=== PATIENT | female | born 1980 | race Caucasian/White ===

== ENCOUNTER 2016-06-21 06:36 | Emergency (ER) | payer MEDICAID ==
[2016-06-21] MEDS ORDERED: PENICILLIN V POTASSIUM 500 MG TABLET PO ONE (08:14)
[2016-06-21] MEDS ORDERED: IBUPROFEN 800 MG TABLET PO ONE (08:14)
--- NOTE | 2016-06-21 08:17 | ER Document Report ---
ED Oral Problem - General Chief Complaint: Toothache Stated Complaint: BODYACHE Notes: Patient is a 36-year-old female p presents with jaw swelling and toothache on the right upper jaw. States she saw her dentist to weeks ago for a filling. Patient states that she woke up yesterday with swelling of her right upper jaw and pain in the upper part of her jaw. Patient has been taking Motrin and tramadol at home. Tramadol is prescribed for chronic back pain medication described by Dr. Cruz at [facility]. No other past medical history past surgical history social history. She denies any foul odor, foul drainage from it, difficulty swallowing, drooling. She's been able to tolerate by mouth diet without any difficulty. She denies any fevers or chills. TRAVEL OUTSIDE OF THE [place] IN LAST 30 DAYS: No - Related Data Allergies/Adverse Reactions: No Known Allergies Allergy (Verified 03/04/13 11:41) Past Medical History - Social History Smoking Status: Former Smoker Chew tobacco use (# tins/day): No Frequency of alcohol use: None Drug Abuse: None Family History: Reviewed & Not Pertinent Patient has suicidal ideation: No Patient has homicidal ideation: No Renal/ Medical History: Denies: Hx Peritoneal Dialysis Psychiatric Medical History: Reports: Hx Attention Deficit Hyperactivity Disorder Review of Systems - Review of Systems Constitutional: No symptoms reported EENT: See HPI Cardiovascular: No symptoms reported Respiratory: No symptoms reported Gastrointestinal: No symptoms reported Genitourinary: No symptoms reported Female Genitourinary: No symptoms reported Musculoskeletal: No symptoms reported Skin: No symptoms reported Hematologic/Lymphatic: No symptoms reported Neurological/Psychological: No symptoms reported Physical Exam - Vital signs Vitals: Temp Pulse Resp BP Pulse Ox 99.5 F 102 H 18 121/78 96 06/21/16 06:39 06/21/16 06:39 06/21/16 06:39 06/21/16 06:39 06/21/16 06:39 - HEENT Head: Normocephalic, Atraumatic Eyes: Normal Conjunctiva: Normal Extraocular movements intact: Yes Eyelashes: Normal Pupils: PERRL Ears: Normal External canal: Normal Tympanic membrane: Normal Nasal: Normal Mouth/Lips: Normal Mucous membranes: Normal Teeth diagram: 1 - pain to palpation of the gums Pharynx: Normal. No: Peritonsillar abscess, Post nasal drainage, Retropharyngeal abscess, Uvular edema, Potential airway comprom. Neck: Normal - Respiratory Respiratory status: No respiratory distress Chest status: Nontender Breath sounds: Normal Chest palpation: Normal - Cardiovascular Rhythm: Regular Heart sounds: Normal auscultation, S1 appreciated, S2 appreciated Gallop: None auscultated Normal capillary refill: Yes Course - Re-evaluation Re-evalutation: 06/21/16 10:53 Patient is a 36-year-old female who presents emergency Department complaining of tooth pain since yesterday. This could be related to previous dental procedure or that the filling did not completely occlude the cavity. At this time there is no concern for a period dental abscess, retropharyngeal or peritonsillar abscess. We'll discharge patient home on by mouth penicillin, she can continue taking her prescribed pain killers at home is encouraged to call and follow up with her dentist this week. - Vital Signs Vital signs: Temp Pulse Resp BP Pulse Ox 98.5 F 71 18 100/60 98 06/21/16 08:32 06/21/16 08:32 06/21/16 08:32 06/21/16 08:32 06/21/16 08:32 Discharge - Discharge Clinical Impression: Toothache Condition: Good Disposition: HOME, SELF-CARE Instructions: Penicillin V K ([facility]), Toothache ([facility]) Additional Instructions: Please take your Tramadol and Penicillin as prescribed Please call your dentist on Wednesday Prescriptions: Penicillin V Potassium [Penicillin Vk 500 mg Tablet] 500 mg PO BID #20 tablet
[2016-06-21 08:33] VITALS: BP 100/60
== END 2016-06-21 08:32 | disposition home or self-care (01) ==
LOC: ER 06:36
DX: K08.89 Other specified disorders of teeth and supporting structures (principal); R22.0 Localized swelling, mass and lump, head; Z87.891 Personal history of nicotine dependence
CPT/HCPCS: 99282; J3490 ×2